=== PATIENT | female | born 1985 | race Caucasian/White ===

== ENCOUNTER 2019-05-05 09:18 | Emergency (ER) | payer OTHER ==
[~2019-05-05] VITALS: Ht 154.9 cm; Wt 52.2 kg
[2019-05-05] MEDS ORDERED: PRENA1 TRUE CO1 EACH (09:48)
== END 2019-05-05 16:38 | disposition home or self-care (01) ==
LOC: ER 09:18
DX: O20.0 Threatened abortion (principal)

== ENCOUNTER 2020-03-09 09:20 | Inpatient (IN) | payer OTHER ==
[~2020-03-09] VITALS: Ht 154.9 cm; Wt 58.1 kg
[~2020-03-09 09:20] MED LIST: PRENA1 TRUE CO1 EACH
== END 2020-03-26 13:52 | disposition home or self-care (01) | DRG 807 ==
LOC: OB/GYN 03-23 22:30 → LDR 03-23 22:30 → OB/GYN 03-24 08:55 → SURH 04-03 11:00
PROVIDERS: ADMIT Obstetrics & Gynecology; ATTEND Obstetrics & Gynecology
PROC: 10E0XZZ Delivery of Products of Conception, External Approach (ICD-10-PCS; principal; 2020-03-24)
PROC: 0HQ9XZZ Repair Perineum Skin, External Approach (ICD-10-PCS; 2020-03-24)
PROC: 3E033VJ Introduction of Other Hormone into Peripheral Vein, Percutaneous Approach (ICD-10-PCS; 2020-03-24)
PROC: 4A1HXFZ Monitoring of Products of Conception, Cardiac Rhythm, External Approach (ICD-10-PCS; 2020-03-24)
DX: O71.82 Other specified trauma to perineum and vulva (principal); Z37.0 Single live birth; Z3A.38 38 weeks gestation of pregnancy; Z20.828 Contact with and (suspected) exposure to other viral communicable diseases

== ENCOUNTER 2021-01-14 09:29 | Inpatient (IN) | payer OTHER ==
[~2021-01-14] VITALS: Ht 180.3 cm; Wt 54.0 kg
[2021-01-14] MEDS ORDERED: VITAMIN C1000 M2 PO (11:40)
[2021-01-14] MEDS ORDERED: PROBIOTIC1 EAC2 PO (11:41)
[2021-01-14] MEDS ORDERED: CALCIUM500 M1 PO (11:42)
== END 2021-01-18 09:26 | disposition home or self-care (01) | DRG 819 ==
LOC: LDR 09:29 → OB/GYN 01-16 12:13
PROVIDERS: ADMIT Obstetrics & Gynecology Maternal & Fetal Medicine; ATTEND Obstetrics & Gynecology Maternal & Fetal Medicine
PROC: 4A1HXFZ Monitoring of Products of Conception, Cardiac Rhythm, External Approach (ICD-10-PCS; 2021-01-14)
PROC: 0UVC7ZZ Restriction of Cervix, Via Natural or Artificial Opening (ICD-10-PCS; principal; 2021-01-14 17:00)
DX: O34.32 Maternal care for cervical incompetence, second trimester (principal); Z3A.25 25 weeks gestation of pregnancy; Z20.822 Contact with and (suspected) exposure to COVID-19

== ENCOUNTER 2021-01-30 01:23 | Inpatient (IN) | payer OTHER ==
[~2021-01-30] VITALS: Ht 154.9 cm; Wt 55.3 kg
[~2021-01-30 01:23] MED LIST changes: +CALCIUM500 M1 PO; +PROBIOTIC1 EAC2 PO; +VITAMIN C1000 M2 PO
== END 2021-02-02 11:23 | disposition home or self-care (01) | DRG 832 ==
LOC: LDR 01:23 → OB/GYN 01-31 12:15
PROVIDERS: ADMIT Obstetrics & Gynecology; ATTEND Obstetrics & Gynecology
PROC: BU4CZZZ Ultrasonography of Uterus and Ovaries (ICD-10-PCS; principal; 2021-01-30)
PROC: 4A1HXFZ Monitoring of Products of Conception, Cardiac Rhythm, External Approach (ICD-10-PCS; 2021-01-30)
DX: O34.32 Maternal care for cervical incompetence, second trimester (principal); O47.03 False labor before 37 completed weeks of gestation, third trimester; Z3A.27 27 weeks gestation of pregnancy; Z20.822 Contact with and (suspected) exposure to COVID-19

== ENCOUNTER 2021-02-08 14:20 | Outpatient (CLI) | payer OTHER | END 2021-02-08 15:06 | disposition home or self-care (01) | LOC: NST 14:20 | PROVIDERS: ATTEND Obstetrics & Gynecology | DX: Z34.83 Encounter for supervision of other normal pregnancy, third trimester (principal) ==

== ENCOUNTER → 2021-03-02 | Outpatient (CLI) | payer OTHER | END | disposition home or self-care (01) | LOC: NST 16:15 | PROVIDERS: ATTEND Obstetrics & Gynecology Maternal & Fetal Medicine | DX: Z34.83 Encounter for supervision of other normal pregnancy, third trimester (principal) ==

== ENCOUNTER → 2021-03-22 | Outpatient (CLI) | payer OTHER | END | disposition home or self-care (01) | LOC: NST 15:06 | PROVIDERS: ATTEND Obstetrics & Gynecology Maternal & Fetal Medicine | DX: Z34.83 Encounter for supervision of other normal pregnancy, third trimester (principal) ==

== ENCOUNTER 2021-04-07 14:15 | Inpatient (IN) | payer OTHER ==
[~2021-04-07] VITALS: Ht 154.9 cm; Wt 60.8 kg
== END 2021-04-17 11:13 | disposition home or self-care (01) | DRG 807 ==
LOC: LDR 04-15 16:45 → OB/GYN 04-16 13:30
PROVIDERS: ADMIT Obstetrics & Gynecology Maternal & Fetal Medicine; ATTEND Obstetrics & Gynecology Maternal & Fetal Medicine
PROC: 10E0XZZ Delivery of Products of Conception, External Approach (ICD-10-PCS; principal; 2021-04-15)
PROC: 0KQM0ZZ Repair Perineum Muscle, Open Approach (ICD-10-PCS; 2021-04-15)
PROC: 4A1HXFZ Monitoring of Products of Conception, Cardiac Rhythm, External Approach (ICD-10-PCS; 2021-04-15)
DX: O99.824 Streptococcus B carrier state complicating childbirth (principal); Z37.0 Single live birth; O70.1 Second degree perineal laceration during delivery; Z3A.38 38 weeks gestation of pregnancy

== ENCOUNTER → 2021-04-12 | Outpatient (CLI) | payer OTHER | END | disposition home or self-care (01) | LOC: NST 16:18 | PROVIDERS: ATTEND Obstetrics & Gynecology Maternal & Fetal Medicine | DX: Z34.83 Encounter for supervision of other normal pregnancy, third trimester (principal) ==